=== PATIENT | female | born 1945 | race Caucasian/White ===

== ENCOUNTER 2019-01-04 04:44 | Day surgery (SDC) | payer MEDICARE, BC ==
[2019-01-04] MEDS ORDERED: fentaNYL 100 MCG/2 ML SDV IV ONE ×3 (04:45→06:35)
[2019-01-04] MEDS ORDERED: Midazolam 1 MG/ML 2 ML SDV IV ONE ×7 (04:45→06:46)
[2019-01-04] MEDS ORDERED: Sodium Chloride 0.9% 10 ML Syringe FLUSH PRN (06:00)
[2019-01-04] MEDS ORDERED: Dextrose 5%-0.45% NaCl 1,000 ML IV SCH (06:00)
[2019-01-04] MEDS ORDERED: Midazolam 1 MG/ML 2 ML SDV ONE (06:16)
[2019-01-04] MEDS ORDERED: fentaNYL 100 MCG/2 ML SDV ONE (06:16)
[2019-01-04 11:28] VITALS: BP 125/64; PULSE 57
--- NOTE | 2019-01-04 14:56 | OR ---
DATE: 01/04/2019 PROCEDURE PERFORMED: Total colonoscopy, narrowband imaging, and multiple cold snare polypectomies. INSTRUMENT USED: PCF-H190DL Olympus video colonoscope. PREMEDICATIONS: Fentanyl 100 mcg intravenous, Versed 4 mg intravenous. Nasal O2 cannula. The procedure was done under pulse oximetry, BP recording, and pvc monitor. INDICATION: The patient with right-sided lower abdominal pain and progressive constipation, unexplained and not responsive to medical measures. Colonoscopic examination is done for detection of any polypoid lesions and removal, endoscopic hemostasis therapy if needed. DESCRIPTION OF PROCEDURE: Initial rectal exam showed external hemorrhoidal tags. Rigid anoscopy showed small internal hemorrhoids without bleeding from them. The colonoscope was passed with ease. Numerous wide-mouth diverticula were noted in the distal left colon along with deformity. In the distal descending colon, a 5-mm sized benign-appearing polyp was noted, photograph was taken, cold snare polypectomy was done, the tissue was retrieved and sent for histopathology. The scope was passed with ease up to the ileocecal area. Photographs were taken of the cecum showing 5-mm sized benign-appearing polyp, NBI views were obtained, cold snare polypectomy was done, the tissue was retrieved and sent for histopathology. No bleeding was noted from any of the visualized areas at the commencement of the examination. There was moderate amount of fecal material that had to be aspirated, bowel preparation [place] scale 2. No stricture. No vascular ectasia. No large isolated ulcerations seen. No evidence of diffuse inflammatory bowel disease in the form of friability, contact bleeding, or ulcerations. Probing the proximal sides of folds and flexures using adequate distention and clearing up the stool material, withdrawal of the scope was made, cecum to rectum, time over 6 minutes. No bleeding was noted from any of the visualized areas at the completion of examination. IMPRESSION: 1. External and internal hemorrhoids. 2. Diverticulosis. 3. Multiple colonic polyps. The patient tolerated the procedure well. [facility] /[id number]
== END 2019-01-04 09:00 | disposition home or self-care (01) ==
LOC: DL.ENDO 04:44
PROVIDERS: ATTEND Internal Medicine Gastroenterology
DX: D12.0 Benign neoplasm of cecum (principal); D12.4 Benign neoplasm of descending colon; K57.30 Diverticulosis of large intestine without perforation or abscess without bleeding; K64.4 Residual hemorrhoidal skin tags; K64.8 Other hemorrhoids; I10 Essential (primary) hypertension; E78.5 Hyperlipidemia, unspecified; F32.9 Major depressive disorder, single episode, unspecified; E66.01 Morbid (severe) obesity due to excess calories; Z68.31 Body mass index [BMI] 31.0-31.9, adult; Z79.82 Long term (current) use of aspirin; Z79.899 Other long term (current) drug therapy
CPT/HCPCS: 45385; J2250; J3010; J7042; 88305

== ENCOUNTER 2019-06-07 14:17 | Emergency (ER) | payer MEDICARE, BC ==
[2019-06-07 15:41] VITALS: BP 171/63; PULSE 63
--- NOTE | 2019-06-07 16:12 | EDM.PDOC ---
ED HPI GENERAL MEDICAL PROBLEM - General Chief Complaint: Abdominal Pain Stated Complaint: PAIN IN STOMACH Time Seen by Provider: 06/07/19 15:54 Source of Information: Reports: Patient History Limitations: Reports: No Limitations - History of Present Illness INITIAL COMMENTS - FREE TEXT/NARRATIVE: she comes emergency department today with complaints of right lower quadrant pain. This patient has struggled with chronic abdominal pain. This morning she had a rather sudden onset of severe pain in her right lower quadrant. It was waves of pain. She has had this many times in the past and thought it was constipation. Throughout the day the pain continued but of course when she got in the car to drive to the clinic the pain completely went away. She has not had a bowel movement for 2-3 days which is a little bit uncommon for her. She has no bloating nausea or vomiting. No diarrhea. She has had decreased urination and she was started on her bladder control medication. No hematuria dysuria or urinary frequency. No flank pain. No fever no chills. She has had multiple hernias in her abdomen in the past for that she has had surgery on. - Related Data Allergies Allergy/AdvReac Type Severity Reaction Status Date / Time No Known Allergies Allergy Verified 06/07/19 15:12 Home Meds: Home Meds Enalapril Maleate 2.5 mg PO DAILY 02/09/14 [History] Levothyroxine 25 mcg PO DAILY 02/09/14 [History] Omeprazole 20 mg PO DAILY 02/09/14 [History] Acetaminophen 650 mg PO Q6H 05/14/14 [History] Magnesium Hydroxide [Milk of Magnesia] 10 ml PO DAILY PRN 05/14/14 [History] Naproxen Sodium 2 tab PO DAILY PRN 05/14/14 [History] Psyllium Husk [Metamucil] 1 - 2 cap PO DAILY PRN 05/14/14 [History] atorvaSTATin [Lipitor] 5 mg PO BEDTIME 05/14/14 [History] hydroCHLOROthiazide [Hydrochlorothiazide] 25 mg PO DAILY 05/14/14 [History] Hydrocodone/Acetaminophen [Hydrocodon-Acetaminophn 10-325] 0.5 - 1 tab PO Q6H PRN #90 tablet 06/07/14 [Rx] Aspirin [Ecotrin] 81 mg PO DAILY 01/03/19 [History] Sertraline [Zoloft] 50 mg PO DAILY 01/03/19 [History] Past Medical History HEENT History: Reports: Impaired Vision Other HEENT History: reading glasses Cardiovascular History: Reports: None, High Cholesterol Respiratory History: Reports: None Gastrointestinal History: Reports: Chronic Constipation, GERD, Other (See Below) Other Gastrointestinal History: hx of hernia repair Genitourinary History: Reports: None Musculoskeletal History: Reports: None Neurological History: Reports: Migraines Other Neuro History: has not had migraines in many years Psychiatric History: Reports: Anxiety, Depression Endocrine/Metabolic History: Reports: Hypothyroidism, Obesity/BMI 30+ Hematologic History: Reports: B12 Deficiency Immunologic History: Reports: None Oncologic (Cancer) History: Reports: None Dermatologic History: Reports: None - Infectious Disease History Infectious Disease History: Reports: Chicken Pox, Measles, Mumps - Past Surgical History HEENT Surgical History: Reports: Adenoidectomy, Tonsillectomy Cardiovascular Surgical History: Reports: None GI Surgical History: Reports: Appendectomy, Colonoscopy, Hernia Repair/Other Female Surgical History: Reports: Section Endocrine Surgical History: Reports: None Musculoskeletal Surgical History: Reports: None Dermatological Surgical History: Reports: None Social & Family History - Family History Family Medical History: Noncontributory - Tobacco Use Smoking Status *Q: Never Smoker - Caffeine Use Caffeine Use: Reports: Coffee Other Caffeine Use: daily. occasional tea. occasional soda - Recreational Drug Use Recreational Drug Use: No - Living Situation & Occupation Living situation: Reports: ED ROS GENERAL - Review of Systems Review Of Systems: ROS reveals no pertinent complaints other than HPI. ED EXAM, GI/ABD - Physical Exam Exam: See Below Exam Limited By: No Limitations General Appearance: Alert, WD/WN, No Apparent Distress Neck: Normal Inspection Respiratory/Chest: No Respiratory Distress, Lungs Clear, No Accessory Muscle Use Cardiovascular: Normal Peripheral Pulses, Regular Rate, Rhythm GI/Abdominal Exam: Normal Bowel Sounds, Hernia (right lower quadrant hernia that was easily reduced by manual palpation.). No: Distended, Guarding, Rigid, Rebound, Tender, Abnormal Bowel Sounds Back Exam: Normal Inspection. No: CVA Tenderness (L), CVA Tenderness (R) Extremities: Normal Inspection, Normal Range of Motion, Normal Capillary Refill Neurological: Alert, Oriented, Normal Cognition, No Motor/Sensory Deficits Psychiatric: Normal Affect, Normal Mood Skin Exam: Warm, Dry, Intact, Normal Color, No Rash Course - Vital Signs Last Recorded V/S: Last Vital Signs Temp 37.2 C 06/07/19 15:32 Pulse 63 06/07/19 15:32 Resp 16 06/07/19 15:32 BP 171/63 H 06/07/19 15:32 Pulse Ox 96 06/07/19 15:32 - Orders/Labs/Meds Orders: Active Orders 24 hr Category Date Time Status CULTURE URINE [RM] Stat Lab 06/07/19 15:52 Received Labs: Laboratory Tests 06/07/19 06/07/19 06/07/19 Range/Units 15:43 15:43 15:43 WBC 11.1 H (5.0-10.0) 10^3/uL RBC 5.19 (4.2-5.4) 10^6/uL Hgb 15.8 D (12.0-16.0) g/dL Hct 45.2 (37.0-47.0) % MCV 87.1 D (80-100) fL MCH 30.4 (27.0-34.0) pg MCHC 35.0 (33.0-35.0) g/dL Plt Count 333 D (150-450) 10^3/uL Neut % (Auto) 78.1 H (42.2-75.2) % Lymph % (Auto) 14.3 L (20.5-50.1) % [place] % (Auto) 7.0 (2-8) % Eos % (Auto) 0.5 L (1.0-3.0) % Baso % (Auto) 0.1 (0.0-1.0) % Sodium 129 L D (135-145) mmol/L Potassium 3.0 L (3.6-5.0) mmol/L Chloride 90 L (101-111) mmol/L Carbon Dioxide 30.0 (21.0-31.0) mmol/L Anion Gap 12.0 BUN 9 (7-18) mg/dL Creatinine 0.5 L (0.6-1.3) mg/dL Est Cr Clr Drug Dosing 76.74 mL/min Estimated GFR (MDRD) > 60 BUN/Creatinine Ratio 18.00 Glucose 98 (74-105) mg/dL Lactic Acid 0.7 (0.5-2.2) mmol/L Calcium 9.3 (8.4-10.2) mg/dl Total Bilirubin 1.3 H (0.2-1.0) mg/dL AST 22 (10-42) IU/L ALT 12 (10-60) IU/L Alkaline Phosphatase 65 (42-121) IU/L Total Protein 7.3 (6.7-8.2) g/dl Albumin 4.1 (3.2-5.5) g/dl Globulin 3.2 Albumin/Globulin Ratio 1.28 Urine Color (YELLOW) Urine Appearance (CLEAR) Urine pH (5.0-9.0) Ur Specific [place] (1.005-1.030) Urine Protein (NEGATIVE) Urine Glucose (UA) (NEGATIVE) Urine Ketones (NEGATIVE) Urine Occult Blood (NEGATIVE) Urine Nitrite (NEGATIVE) Urine Bilirubin (NEGATIVE) Urine Urobilinogen (0.2-1.0) mg/dL Ur Leukocyte Esterase (NEGATIVE) Urine RBC /HPF Urine WBC (0-5/HPF) /HPF Ur Epithelial Cells (NOT SEEN) /HPF Amorphous Sediment (NOT SEEN) /HPF Urine Bacteria (0-FEW/HPF) /HPF Urine Mucus (NOT SEEN) /LPF 06/07/19 Range/Units 15:52 WBC (5.0-10.0) 10^3/uL RBC (4.2-5.4) 10^6/uL Hgb (12.0-16.0) g/dL Hct (37.0-47.0) % MCV (80-100) fL MCH (27.0-34.0) pg MCHC (33.0-35.0) g/dL Plt Count (150-450) 10^3/uL Neut % (Auto) (42.2-75.2) % Lymph % (Auto) (20.5-50.1) % [place] % (Auto) (2-8) % Eos % (Auto) (1.0-3.0) % Baso % (Auto) (0.0-1.0) % Sodium (135-145) mmol/L Potassium (3.6-5.0) mmol/L Chloride (101-111) mmol/L Carbon Dioxide (21.0-31.0) mmol/L Anion Gap BUN (7-18) mg/dL Creatinine (0.6-1.3) mg/dL Est Cr Clr Drug Dosing mL/min Estimated GFR (MDRD) BUN/Creatinine Ratio Glucose (74-105) mg/dL Lactic Acid (0.5-2.2) mmol/L Calcium (8.4-10.2) mg/dl Total Bilirubin (0.2-1.0) mg/dL AST (10-42) IU/L ALT (10-60) IU/L Alkaline Phosphatase (42-121) IU/L Total Protein (6.7-8.2) g/dl Albumin (3.2-5.5) g/dl Globulin Albumin/Globulin Ratio Urine Color Dark yellow (YELLOW) Urine Appearance Slightly cloudy (CLEAR) Urine pH 6.0 (5.0-9.0) Ur Specific [place] 1.010 (1.005-1.030) Urine Protein Negative (NEGATIVE) Urine Glucose (UA) Negative (NEGATIVE) Urine Ketones Negative (NEGATIVE) Urine Occult Blood Small H (NEGATIVE) Urine Nitrite Negative (NEGATIVE) Urine Bilirubin Negative (NEGATIVE) Urine Urobilinogen 0.2 (0.2-1.0) mg/dL Ur Leukocyte Esterase Small H (NEGATIVE) Urine RBC 5-10 H /HPF Urine WBC 5-10 H (0-5/HPF) /HPF Ur Epithelial Cells Few (NOT SEEN) /HPF Amorphous Sediment Occasional (NOT SEEN) /HPF Urine Bacteria Occasional (0-FEW/HPF) /HPF Urine Mucus Rare (NOT SEEN) /LPF - Radiology Interpretation Free Text/Narrative:: xray abd per radiology, IMPRESSION: 1. Zipper pull to the left of the L4-5 disc of indeterminate location. 2. No acute intra-abdominal abnormality. - Re-Assessments/Exams Free Text/Narrative Re-Assessment/Exam: 06/07/19 19:22 I explained to the patient that I have concerns for recurrent hernia in the right lower quadrant which could be causing her pain. Although at this time is clearly easily reducible. No sign of obstruction on the plain film of the abdomen. Her laboratory evaluation is rather unremarkable other than concerns for urinary tract infection. She really feels like she hasn't been able to urinate as muchrecently. Although she was just recently started on some bladder control medication as well. We'll discharge her home at this time with some therapy for urinary tract infection however follow-up with primary care for her recurrent hernia in her abdomen if at any time it becomes so painful that she is unable to reduce it or does not go away on its own as it did today she needs to recheck for concerns of strangulation. She is comfortable with this plan and her questions are answered Departure - Departure Time of Disposition: 16:47 Disposition: Home, Self-Care 01 Clinical Impression: UTI (urinary tract infection), uncomplicated, Hernia of abdominal wall - Discharge Information Instructions: Hernia, Adult, [id number], Urinary Tract Infection, Adult, Easy -to-Read, Pain Medicine Instructions, [id number] Referrals: Zev Gordon MD [Primary Care Provider] - Forms: ED Department Discharge Additional Instructions: Cefdinir, 1 tablet twice daily for the next 7 days. RX given to the patient. #14 Increase fluids over the next few days. See PCP mid next week for recheck of the abdominal hernia and possible further workup. Return to the ED if new or worsening symptoms or the hernia does not reduce and continues to be painful. - My Orders Last 24 Hours: My Active Orders 06/07/19 15:52 CULTURE URINE [RM] Stat - Assessment/Plan Last 24 Hours: My Active Orders 06/07/19 15:52 CULTURE URINE [RM] Stat Assessment:: RLQ abd hernia easily reducible in the ED UTI Plan: Cefdinir, 1 tablet twice daily for the next 7 days. RX given to the patient. #14 Increase fluids over the next few days. See PCP mid next week for recheck of the abdominal hernia and possible further workup. Return to the ED if new or worsening symptoms or the hernia does not reduce and continues to be painful.
[2019-06-07 16:13] LABS: CHLORIDE,CL 90 mmol/L (101-111); SODIUM,NA 129 mmol/L (135-145)
== END 2019-06-07 16:58 | disposition home or self-care (01) ==
LOC: DL.ED 14:17
DX: N39.0 Urinary tract infection, site not specified (principal); K43.9 Ventral hernia without obstruction or gangrene; K21.9 Gastro-esophageal reflux disease without esophagitis; E78.5 Hyperlipidemia, unspecified; Z79.82 Long term (current) use of aspirin; Z79.899 Other long term (current) drug therapy
CPT/HCPCS: 36415; 74019; 80053; 81001; 83605; 85025; 87086; 99284-25

== ENCOUNTER 2021-11-23 15:42 | Emergency (ER) | payer MEDICARE, BC ==
[2021-11-23 16:16] VITALS: BP 112/53; PULSE 63
[2021-11-23] MEDS ORDERED: Acetaminophen/HYDROcodone 325-5 MG Tab PO ONE (17:00)
[2021-11-23] MEDS ORDERED: methylPREDNISolone Sodium Succinate 125 MG/2 ML SDV IM ONE (17:01)
== END 2021-11-23 18:47 | disposition home or self-care (01) ==
LOC: DL.ED 15:42
DX: M79.2 Neuralgia and neuritis, unspecified (principal); M53.3 Sacrococcygeal disorders, not elsewhere classified; Z79.899 Other long term (current) drug therapy; Z79.82 Long term (current) use of aspirin; Z90.49 Acquired absence of other specified parts of digestive tract
CPT/HCPCS: 96372; 99283; A9270-GY; J2930

== ENCOUNTER 2021-11-25 13:08 | Inpatient (IN) | payer MEDICARE, BC ==
[2021-11-25] MEDS ORDERED: Sodium Chloride 0.9% 10 ML Syringe FLUSH PRN (13:58)
[2021-11-25] MEDS ORDERED: Acetaminophen/oxyCODONE 325-5 MG Tab PO ONE (14:40)
[2021-11-25] MEDS ORDERED: Acetaminophen/HYDROcodone 325-5 MG Tab PO ONE (14:41)
[2021-11-25] MEDS ORDERED: Morphine 2 MG/ML SYRINGE IVPUSH PRN (15:38)
[2021-11-25] MEDS ORDERED: Ondansetron 4 MG Tab.DIS PO PRN (15:38)
[2021-11-25] MEDS ORDERED: oxyCODONE 5 MG Tab PO PRN (15:43)
[2021-11-25] MEDS ORDERED: Dextrose 5%-0.45% NaCl 1,000 ML IV SCH (15:45)
[2021-11-25] MEDS: Heparin Sodium 5,000 Units/ML Vial SUBCUT SCH (20:38)
[2021-11-25] MEDS ORDERED: Cyclobenzaprine 10 MG Tab PO PRN (20:45)
[2021-11-25] MEDS ORDERED: Magnesium Hydroxide 400 MG/5 ML Susp 30 ML Cup PO PRN (20:45)
[2021-11-25] MEDS ORDERED: Psyllium 0.52 GM Cap PO PRN (20:45)
[2021-11-25] MEDS: atorvaSTATin 10 MG Tab PO SCH (21:13)
[2021-11-25] MEDS: Donepezil 10 MG Tab PO SCH (21:14)
[2021-11-25 22:20] LABS: ANION GAP 10.4 mEq/L (7-13); CHLORIDE,CL 101 mmol/L (98-107); SODIUM,NA 139 mmol/L (136-145)
[2021-11-25] MEDS: Acetaminophen/oxyCODONE 325-5 MG Tab PO PRN (22:54)
[2021-11-26] MEDS: Acetaminophen/oxyCODONE 325-5 MG Tab PO PRN ×3 (03:32→19:54)
[2021-11-26 05:54] LABS: ANION GAP 9.7 mEq/L (7-13); CHLORIDE,CL 102 mmol/L (98-107); SODIUM,NA 140 mmol/L (136-145)
[2021-11-26] MEDS: Omeprazole 20 MG Cap.CR PO SCH (06:01)
[2021-11-26] MEDS: Levothyroxine 50 MCG Tab PO SCH (06:01)
[2021-11-26] MEDS: Enalapril 5 MG Tab PO SCH (08:21)
[2021-11-26] MEDS: Aspirin 81 MG Tab.EC PO SCH (08:22)
[2021-11-26] MEDS: Hydrochlorothiazide 25 MG Tab PO SCH (08:22)
[2021-11-26] MEDS: Potassium Chloride 10 MEQ Tab.ER PO SCH (08:22)
[2021-11-26] MEDS: Sertraline 50 MG Tab PO SCH (08:23)
[2021-11-26] MEDS: predniSONE 20 MG Tab PO SCH (08:23)
[2021-11-26] MEDS: Heparin Sodium 5,000 Units/ML Vial SUBCUT SCH ×2 (08:23→21:08)
[2021-11-26] MEDS: TROSPIUM CHLORIDE 20 MG PO SCH ×2 (20:46→21:05)
[2021-11-26] MEDS: MIRABEGRON 25 MG PO SCH (20:47)
[2021-11-26] MEDS: Donepezil 10 MG Tab PO SCH (21:05)
[2021-11-26] MEDS: atorvaSTATin 10 MG Tab PO SCH (21:06)
[2021-11-27] MEDS: Acetaminophen/oxyCODONE 325-5 MG Tab PO PRN ×3 (00:06→16:45)
[2021-11-27] MEDS: Levothyroxine 50 MCG Tab PO SCH (05:46)
[2021-11-27] MEDS: Omeprazole 20 MG Cap.CR PO SCH (05:46)
[2021-11-27] MEDS: Hydrochlorothiazide 25 MG Tab PO SCH (09:25)
[2021-11-27] MEDS: predniSONE 20 MG Tab PO SCH (09:25)
[2021-11-27] MEDS: Enalapril 5 MG Tab PO SCH (09:26)
[2021-11-27] MEDS: Sertraline 50 MG Tab PO SCH (09:27)
[2021-11-27] MEDS: Heparin Sodium 5,000 Units/ML Vial SUBCUT SCH ×2 (09:27→20:11)
[2021-11-27] MEDS: Aspirin 81 MG Tab.EC PO SCH (09:27)
[2021-11-27] MEDS: Potassium Chloride 10 MEQ Tab.ER PO SCH (09:27)
[2021-11-27] MEDS: TROSPIUM CHLORIDE 20 MG PO SCH ×2 (09:32→20:20)
[2021-11-27] MEDS: MIRABEGRON 25 MG PO SCH (09:34)
[2021-11-27] MEDS: Lidocaine 5% 700 MG Patch TOP SCH (09:37)
[2021-11-27] MEDS: Donepezil 10 MG Tab PO SCH (20:10)
[2021-11-27] MEDS: atorvaSTATin 10 MG Tab PO SCH (20:11)
[2021-11-28] MEDS: Acetaminophen/oxyCODONE 325-5 MG Tab PO PRN ×2 (00:21→14:21)
[2021-11-28] MEDS: Omeprazole 20 MG Cap.CR PO SCH (06:12)
[2021-11-28] MEDS: Levothyroxine 50 MCG Tab PO SCH (06:13)
[2021-11-28] MEDS: Acetaminophen 325 MG Tab PO PRN ×2 (06:20→21:40)
[2021-11-28] MEDS: Enalapril 5 MG Tab PO SCH (09:25)
[2021-11-28] MEDS: Potassium Chloride 10 MEQ Tab.ER PO SCH (09:25)
[2021-11-28] MEDS: Hydrochlorothiazide 25 MG Tab PO SCH (09:25)
[2021-11-28] MEDS: Sertraline 50 MG Tab PO SCH (09:25)
[2021-11-28] MEDS: Aspirin 81 MG Tab.EC PO SCH (09:26)
[2021-11-28] MEDS: predniSONE 20 MG Tab PO SCH (09:26)
[2021-11-28] MEDS: Lidocaine 5% 700 MG Patch TOP SCH (09:26)
[2021-11-28] MEDS: Heparin Sodium 5,000 Units/ML Vial SUBCUT SCH ×2 (09:27→21:42)
[2021-11-28] MEDS: TROSPIUM CHLORIDE 20 MG PO SCH ×2 (09:28→21:42)
[2021-11-28] MEDS: MIRABEGRON 25 MG PO SCH (09:28)
[2021-11-28] MEDS: Bisacodyl 10 MG Supp RECTAL SCH (14:21)
[2021-11-28] MEDS: atorvaSTATin 10 MG Tab PO SCH (21:39)
[2021-11-28] MEDS: Donepezil 10 MG Tab PO SCH (21:40)
[2021-11-29] MEDS: Acetaminophen/oxyCODONE 325-5 MG Tab PO PRN ×3 (04:46→22:30)
[2021-11-29] MEDS: Levothyroxine 50 MCG Tab PO SCH (06:51)
[2021-11-29] MEDS: Omeprazole 20 MG Cap.CR PO SCH (06:51)
[2021-11-29] MEDS: Aspirin 81 MG Tab.EC PO SCH (08:55)
[2021-11-29] MEDS: Sertraline 50 MG Tab PO SCH (08:55)
[2021-11-29] MEDS: predniSONE 20 MG Tab PO SCH (08:55)
[2021-11-29] MEDS: Potassium Chloride 10 MEQ Tab.ER PO SCH (08:55)
[2021-11-29] MEDS: Hydrochlorothiazide 25 MG Tab PO SCH (08:55)
[2021-11-29] MEDS: Enalapril 5 MG Tab PO SCH (08:56)
[2021-11-29] MEDS: Heparin Sodium 5,000 Units/ML Vial SUBCUT SCH ×2 (08:56→21:36)
[2021-11-29] MEDS: MIRABEGRON 25 MG PO SCH (08:58)
[2021-11-29] MEDS: TROSPIUM CHLORIDE 20 MG PO SCH ×2 (08:58→21:37)
[2021-11-29] MEDS: Lidocaine 5% 700 MG Patch TOP SCH (08:59)
[2021-11-29] MEDS: Bisacodyl 10 MG Supp RECTAL SCH (10:30)
[2021-11-29] MEDS: Donepezil 10 MG Tab PO SCH (21:36)
[2021-11-29] MEDS: atorvaSTATin 10 MG Tab PO SCH (21:36)
[2021-11-30] MEDS: Omeprazole 20 MG Cap.CR PO SCH (06:30)
[2021-11-30] MEDS: Levothyroxine 50 MCG Tab PO SCH (06:30)
[2021-11-30] MEDS: Bisacodyl 10 MG Supp RECTAL SCH (09:16)
[2021-11-30] MEDS: Aspirin 81 MG Tab.EC PO SCH (09:16)
[2021-11-30] MEDS: Potassium Chloride 10 MEQ Tab.ER PO SCH (09:17)
[2021-11-30] MEDS: Hydrochlorothiazide 25 MG Tab PO SCH (09:17)
[2021-11-30] MEDS: Enalapril 5 MG Tab PO SCH (09:17)
[2021-11-30] MEDS: Lidocaine 5% 700 MG Patch TOP SCH ×2 (09:18→09:57)
[2021-11-30] MEDS: Sertraline 50 MG Tab PO SCH (09:18)
[2021-11-30] MEDS: predniSONE 20 MG Tab PO SCH (09:18)
[2021-11-30] MEDS: Heparin Sodium 5,000 Units/ML Vial SUBCUT SCH ×2 (09:19→20:22)
[2021-11-30] MEDS: MIRABEGRON 25 MG PO SCH (09:19)
[2021-11-30] MEDS: TROSPIUM CHLORIDE 20 MG PO SCH ×2 (09:20→20:25)
[2021-11-30] MEDS: Acetaminophen/oxyCODONE 325-5 MG Tab PO PRN (12:11)
[2021-11-30] MEDS: Donepezil 10 MG Tab PO SCH (20:22)
[2021-11-30] MEDS: atorvaSTATin 10 MG Tab PO SCH (20:22)
[2021-11-30] MEDS: Acetaminophen 325 MG Tab PO PRN (20:23)
[2021-12-01] MEDS: Omeprazole 20 MG Cap.CR PO SCH (06:33)
[2021-12-01] MEDS: Levothyroxine 50 MCG Tab PO SCH (06:33)
[2021-12-01] MEDS: Aspirin 81 MG Tab.EC PO SCH (09:04)
[2021-12-01] MEDS: Enalapril 5 MG Tab PO SCH (09:04)
[2021-12-01] MEDS: Potassium Chloride 10 MEQ Tab.ER PO SCH (09:06)
[2021-12-01] MEDS: Hydrochlorothiazide 25 MG Tab PO SCH (09:06)
[2021-12-01] MEDS: Sertraline 50 MG Tab PO SCH (09:07)
[2021-12-01] MEDS: predniSONE 20 MG Tab PO SCH (09:07)
[2021-12-01] MEDS: MIRABEGRON 25 MG PO SCH (09:08)
[2021-12-01] MEDS: TROSPIUM CHLORIDE 20 MG PO SCH (09:08)
[2021-12-01] MEDS: Heparin Sodium 5,000 Units/ML Vial SUBCUT SCH (09:11)
[2021-12-01] MEDS: Lidocaine 5% 700 MG Patch TOP SCH ×2 (09:13→09:14)
[2021-12-01] MEDS: Bisacodyl 10 MG Supp RECTAL SCH (10:16)
[2021-12-01 12:47] VITALS: BP 142/61; PULSE 57
== END 2021-12-01 12:52 | DRG 563 ==
LOC: DL.ED 13:08 → DL.MS 15:25
PROVIDERS: ADMIT Hospitalist; ATTEND Hospitalist
DX: S42.291A Other displaced fracture of upper end of right humerus, initial encounter for closed fracture (principal); Z68.41 Body mass index [BMI] 40.0-44.9, adult; S42.391A Other fracture of shaft of right humerus, initial encounter for closed fracture; I10 Essential (primary) hypertension; E78.5 Hyperlipidemia, unspecified; Z20.822 Contact with and (suspected) exposure to COVID-19; E66.01 Morbid (severe) obesity due to excess calories; M54.41 Lumbago with sciatica, right side; H54.7 Unspecified visual loss; E78.00 Pure hypercholesterolemia, unspecified; E66.9 Obesity, unspecified; K59.09 Other constipation; K21.9 Gastro-esophageal reflux disease without esophagitis; E03.9 Hypothyroidism, unspecified; E53.8 Deficiency of other specified B group vitamins; G30.9 Alzheimer's disease, unspecified; F02.80 Dementia in other diseases classified elsewhere, unspecified severity, without behavioral disturbance, psychotic disturbance, mood disturbance, and anxiety; Z79.82 Long term (current) use of aspirin; Z79.890 Hormone replacement therapy; Z79.899 Other long term (current) drug therapy; W18.30XA Fall on same level, unspecified, initial encounter; Y92.008 Other place in unspecified non-institutional (private) residence as the place of occurrence of the external cause
CPT/HCPCS: 73030; 99284; A9270; U0002; 36415; 70450; 80048; 80053; 85025; 85610; 97110-GP; 97116-GP; 97129-GO; 97165-GO; 97530-GO; J1644; J7042; J7512

== ENCOUNTER 2023-02-03 12:22 | Emergency (ER) | payer MEDICARE, BC ==
[2023-02-03 13:35] VITALS: BP 149/71; PULSE 51
== END 2023-02-03 13:30 | disposition home or self-care (01) ==
LOC: DL.ED 12:22
DX: S42.212A Unspecified displaced fracture of surgical neck of left humerus, initial encounter for closed fracture (principal); E78.00 Pure hypercholesterolemia, unspecified; K21.9 Gastro-esophageal reflux disease without esophagitis; E03.9 Hypothyroidism, unspecified; E66.9 Obesity, unspecified; Z68.39 Body mass index [BMI] 39.0-39.9, adult; Z87.891 Personal history of nicotine dependence; Z88.1 Allergy status to other antibiotic agents; Z79.899 Other long term (current) drug therapy; Z79.82 Long term (current) use of aspirin; W01.0XXA Fall on same level from slipping, tripping and stumbling without subsequent striking against object, initial encounter
CPT/HCPCS: 73030-LT; 73060-LT; 99282; 99283

== ENCOUNTER 2023-07-15 14:33 | Emergency (ER) | payer MEDICARE, BC ==
[2023-07-15] MEDS ORDERED: Ondansetron 4 MG/2 ML SDV IVPUSH ONE (16:08)
[2023-07-15] MEDS ORDERED: fentaNYL 100 MCG/2 ML SDV IVPUSH ONE (16:08)
[2023-07-15 16:29] LABS: BASOPHILS PERCENT AUTO 0.3 % (0.0-1.0); EOSINOPHILS PERCENT AUTO 0.5 % (1.0-3.0); HEMATOCRIT 41.2 % (37.0-47.0); HEMOGLOBIN 13.3 g/dL (12.0-16.0); LYMPHOCYTES PERCENT AUTO 8.5 % (20.5-50.1); MEAN CORPUSCULAR HEMOGLOBIN 29.4 pg (27.0-34.0); MEAN CORPUSCULAR HGB CONC 32.3 g/dL (33.0-35.0); MEAN CORPUSCULAR VOLUME 90.9 fL (80-100); MONOCYTES PERCENT AUTO 6.9 % (2-8); NEUTROPHILS PERCENT AUTO 83.8 % (42.2-75.2); PLATELET COUNT,PLT 282 10^3/uL (150-450); RED BLOOD CELL COUNT 4.53 10^6/uL (4.2-5.4)
[2023-07-15 16:49] LABS: ALANINE AMINOTRANSFERASE,ALT 19 U/L (14-59); ALBUMIN 3.3 g/dL (3.4-5.0); ALKALINE PHOSPHATASE 98 U/L (46-116); ANION GAP 7.4 mEq/L (7-13); ASPARTATE AMNIOTRANSFERASE,AST 22 U/L (15-37); BILIRUBIN TOTAL 0.6 mg/dL (0.2-1.0); BLOOD UREA NITROGEN,BUN 19 mg/dL (7-18); BUN/CREATININE RATIO 22.1 (No establ ref range); CALCIUM 9.1 mg/dL (8.5-10.1); CARBON DIOXIDE,CO2 33 mmol/L (21-32); CHLORIDE,CL 98 mmol/L (98-107); CREATININE 0.86 mg/dL (0.55-1.02); GLUCOSE RANDOM 124 mg/dL (70-99); POTASSIUM,K 3.4 mmol/L (3.5-5.1); PROTEIN TOTAL,TP 6.8 g/dL (6.4-8.2); SODIUM,NA 135 mmol/L (136-145)
[2023-07-15 16:50] LABS: A/G RATIO 0.94; ESTIMATED GFR 70 mL/min (>=60)
[2023-07-15 16:58] LABS: INR 0.9 (0.9-1.2); PROTHROMBIN TIME 9.5 SEC (9.0-12.0)
[2023-07-15] MEDS ORDERED: HYDROmorphone 1 MG/ML Syringe IVPUSH ONE (17:12)
[2023-07-15 17:35] VITALS: BP 107/68; PULSE 62
[2023-07-15 17:46] LABS: PTT,PARTIAL THROMBOPLSTIN TIME 27.6 SEC (22.0-34.0)
== END 2023-07-15 18:40 ==
LOC: DL.ED 14:33
DX: S72.352A Displaced comminuted fracture of shaft of left femur, initial encounter for closed fracture (principal); K21.9 Gastro-esophageal reflux disease without esophagitis; E78.00 Pure hypercholesterolemia, unspecified; E03.9 Hypothyroidism, unspecified; E66.9 Obesity, unspecified; Z88.8 Allergy status to other drugs, medicaments and biological substances; Z79.899 Other long term (current) drug therapy; Z79.82 Long term (current) use of aspirin; Z90.49 Acquired absence of other specified parts of digestive tract; W07.XXXA Fall from chair, initial encounter
CPT/HCPCS: 36415; 73552; 80053; 85025; 85610; 85730; 96374; 96375; 99284; 99285; J1170; J2405; J3010